=== PATIENT | male | born 1965 | race Caucasian/White ===

== ENCOUNTER 2022-10-17 06:35 | Observation (INO) ==
--- NOTE | 2022-09-17 10:12 | Anesthesiology Consultation ---
Date of Service September 17, 2022 Assessment & Plan (1) Encounter for pre-operative examination: Plan - will attempt to obtain cardiology records from Dr. Aguillon, [facility]. - Outpatient joint pathway eligibility pending review of available cardiology records. Chart Review Chart Review: Pending: Refer to Additional Notes / Consult section and Patient seen in Pre Admission Testing Teaching & Discussion Pre-Anesthesia Teaching/Discussion Notes: Instructed NPO after midnight before surgery, except medications with 15 cc of water. Medication instructions provided according to the PAT guidelines. History Surgery Operation Date: 10/17/22 08:10 Proposed Procedures p OP: Right Total Shoulder Arthroplasty vs - Tobi Gambino DO s Right Reverse Total Shoulder Arthroplasty - Tobi Gambino DO Height/Weight Height: 6 ft 1 in Weight: 118.2 kg Allergies Allergy/AdvReac Type Severity Reaction Status Date / Time No Known Allergies Allergy Verified 09/17/22 08:58 Medications Home Medications Medication Instructions Recorded Confirmed Last Taken aspirin 81 mg tablet,delayed 81 mg PO DAILY 09/17/22 09/17/22 Unknown release (Adult Aspirin Regimen) ibuprofen PRN Pain 09/17/22 Unknown Additional Notes: Pt aware he can continue aspirin unless directed otherwise by surgeon, states he was told by surgeon's office to stop NSAIDs 7 days before surgery. Past Medical History Medical History (Updated 09/17/22 @ 10:36 by Kristine Perez PA-C) CAD (coronary artery disease) s/p stent 02/2022, [facility] History of anxiety History of blood transfusion 15 y/o Patient denies h/o stroke, seizures, heart attack, heart failure, DM, HTN, or blood clots. Exercise / Class Metabolic Activity II 4-5 Yardwork/Stairs/Walk up hill (denies CP or SOB with 1 FOS) Past Family History Family History Other No family history of adverse response to anesthesia Past Surgical History Surgical History (Updated 09/17/22 @ 10:39 by Kristine Perez PA-C) Cyst REMOVED FROM R index FINGER H/O wrist surgery RT WITH PINNING/HARDWARE INTACT History of appendectomy History of heart artery stent 02/2022>1 STENT PLACED @ [facility] DR. TREGESER History of surgery on arm LEFT ARM/HARDWARE PLACED A CHILD (? HARDWARE REMOVED) History of tooth extraction Nausea and vomiting after administration of anesthetic agent Past Anesthesia History No Hx of Anesthesia Complications and No Family Hx of Anesthesia Complications History of PONV No Hx of Motion Sickness and History of PONV (in childhood, denies needing scop patch or subsequent issues) Social History Smoking Status: Current some day smoker tobacco type: cigarettes Smoking cigarettes per day: 6 CIG DAILY>ADVISED Do You Dip or Chew Tobacco: No Hx Alcohol Use: Yes alcohol intake frequency: holidays/special occasions only substance use type: does not use Review of Systems Snoring, denies witnessed apneas. Patient denies chest pain, shortness of breath, dyspnea on exertion, reflux, fever, chills, cough, wheezing, or palpitations. Physical Exam Vital Signs Vitals BP 128/84 P 64 TEMP 98.3 SP02 96% on RA RESP 18 Physical Full cervical extension range of motion without pain TMD 3.5 finger breadths Mallampati Score 2 Dentition: intact, multiple caps/crowns; denies chipped or loose teeth, implants or bridges Lungs: normal respiratory effort. Clear throughout to auscultation, no adventitious breath sounds Cardiac: regular rate and rhythm, no murmurs noted Carotid arteries: negative bruit bilat Lab Results Anesthesia Preop Results Results Anesthesia Widget: WBC 5.99 K/ul (4.8-10.8) 09/17/22 Hgb 16.1 g/dl (14.0-18.0) 09/17/22 Hct 47.1 % (40.1-51.0) 09/17/22 Plt 189 K/uL (130-400) 09/17/22 Na 140 mmol/L (136-145) 09/17/22 K 4.2 mmol/L (3.5-5.1) 09/17/22 Cl 105 mmol/L (98-107) 09/17/22 CO2 31 mmol/L (21-32) 09/17/22 BUN 13 mg/dl (6-23) 09/17/22 Creat 0.76 mg/dl (0.6-1.4) 09/17/22 Glucose Level 87 mg/dl (70-99(Fasting)) 09/17/22 PT 10.1 Seconds (9.0-12.0) 09/17/22 PTT 26.2 Seconds (21.0-31.0) 09/17/22 INR 0.9 (0.9-1.1) 09/17/22 Blood Type A Positive 09/17/22 Antibody Screen NEGATIVE 09/17/22 Testing Electrocardiogram Date: 09/17/22 NSR, rate 61 bpm Chest X-Ray Date: 09/17/22 No acute process. Stress Test Date: 07/30/21 Exercise MPHR 90% METS 10 Low probability for exercise-induced ischemia Cardiac Catheterization Date: 02/20/21 Left main: 10-20% mild distal tapering LAD: 30% narrowing proximally Cx: 20-30% narrowing proximally. 95-99% narrowing with a little bit hazy with slow flow into the bifurcating distal marginal branch and somewhat contracted, post PCI 0% residual stenosis RCA: 20-30% luminal irregularities Culprit vessel was the left circumflex, successful VICTORIANO of mid AV Cx into the posterior marginal branch with 0% residual stenosis COVID-19 Risk Screen Screening Information COVID-19 Screen Date: 09/17/22 Exposure 21 Days Family/Household +COVID Last 21 Days: No Exposure 10 Days Any COVID Exposure Last 10 Days: No Symptoms Last 10 Days Experienced COVID Sx Last 10 Days: No + COVID 0-90 Days COVID + in Last 0-90 Days: No
[~2022-10-17 06:35] MED LIST: ACETAMINOPHEN 500 MG TAB PO SCH; FAMOTIDINE 20 MG TAB PO SCH; GABAPENTIN 300 MG CAP PO SCH; LR 15ML/HR IV SCH; LR 60ML/HR IV SCH; ORTHO JOINT MIX INFIL SCH; TRANEXAMIC ACID 1,000 MG **IV Intra-op IV SCH; TRANEXAMIC ACID 1,000 MG **IV Pre-op IV SCH; ceFAZolin 2000MG 2,000 MG/15 ML SYR IV SCH; dexAMETHasone 4 MG TAB PO SCH
[2022-10-17] MEDS ORDERED: BUPIVACAINE 0.5 % 5 MG/1 ML PF 10ML VIAL ONE (06:38)
[2022-10-17] MEDS ORDERED: DEXAMETHASONE SOD INJ 4 MG/ML VIAL ONE (07:28)
[2022-10-17] MEDS ORDERED: ONDANSETRON INJ 2 MG/ML 2 ML VIAL ONE (07:28)
[2022-10-17] MEDS ORDERED: fentaNYL citrate 100 MCG/2 ML VIAL ONE (07:28)
[2022-10-17] MEDS ORDERED: PROPOFOL IV EMULSION 10 MG/ML 20 ML VIAL IV ONE (07:28)
[2022-10-17] MEDS ORDERED: LIDOCAINE 2% MPF LOCAL 5 ML VIAL INFIL ONE (07:28)
[2022-10-17] MEDS ORDERED: MIDAZOLAM HCL 1 MG/ML 2ML VIAL ONE (07:28)
[2022-10-17] MEDS ORDERED: ROCURONIUM BROMIDE 10 MG/ML 5 ML VIAL IV ONE (07:28)
--- NOTE | 2022-10-17 08:02 | History & Physical Bridge Note ---
Date of Service October 17, 2022 History & Physical Bridge Note I have examined the patient, reviewed the History & Physical and in the interval since the performance of the History & Physical I have noted the following changes of clinical significance: no changes noted
[2022-10-17] MEDS ORDERED: ORTHO JOINT ANESTHETIC ONE (08:34)
[2022-10-17] MEDS ORDERED: ONDANSETRON INJ 2 MG/ML 2 ML VIAL IV PRN ×2 (08:47→13:12)
[2022-10-17] MEDS ORDERED: ePHEDrine sulfate 50 MG/ML AMP IV PRN (08:47)
[2022-10-17] MEDS ORDERED: fentaNYL citrate 100 MCG/2 ML VIAL IV PRN (08:47)
[2022-10-17] MEDS ORDERED: HYDROmorphone INJ 2 MG/ML SYR/VIAL IV PRN (08:47)
[2022-10-17] MEDS ORDERED: PROMETHAZINE HCL 12.5 MG in SODIUM CHLORIDE 0.9% 50 ML IV PRN (08:47)
[2022-10-17] MEDS ORDERED: ATROPINE SULFATE 0.1 MG/ML 10ML SYR IV PRN (08:47)
--- NOTE | 2022-10-17 10:57 | Operative Report ---
PG Post Operative Report Pre & Post Diagnosis Operation Date: 10/17/22 09:20 Pre-Op Diagnosis: Right Shoulder Degenerative Joint With tendinopathy long head of biceps tendon Post-Op Diagnosis: Right Shoulder Degenerative Joint With tendinopathy long head of the biceps tendon I identified the patient and participated in the time-out.: Yes Procedure Operation Date: 10/17/22 09:20 Actual Procedures p Right Total Shoulder Arthroplasty With open biceps tenodesis as a distinct and separate procedure (modifier 59) Surgeon Tobi Gambino DO [employer] Tobi Acosta PA-C Estimated Blood Loss 200 Findings Consistent with Post-Op Diagnosis Specimens Right humeral head Description of Procedure A CPT code modifier 59: The long head of the biceps tendon was enlarged and inflamed consistent with tendinopathy. A tenodesis was opted. This was a separate and distinct portion of the procedure. For these reasons, a CPT code modifier 59 will be added to this case. Implants used: I used a [employer] Comprehensive total shoulder arthroplasty system with a size 11 press fit micro humeral stem, a size 46x21 eccentric humeral head, and a 5 augmented glenoid with a trabecular metal peg. The glenoid was cemented in place with Palacos G cement. Kirk arrived at [facility] for the above procedure. He was seen in the preoperative holding area and the operative extremity was identified and signed. He was given a preoperative antibiotic, TXA, and an interscalene nerve block. He was taken back to the operating room, laid on table in supine position, and put under general anesthesia. He was then put into the beachchair position. The shoulder was then prepped and draped in sterile fashion. A timeout was done and the patient and the operative extremity was properly identified. A deltopectoral approach was used. Dissection was taken down through the fascia and the deltoid was retracted laterally and the conjoined tendon was retracted medially. The anterior shoulder was exposed. The biceps groove was opened up and the biceps tendon was examined extensively. The biceps tendon demonstrated enlargement and inflammatory changes consistent with longstanding inflammation in the context of osteoarthritis. The long head of the biceps tendon was then tenodesed to the upper border of the pectoralis major. This was a separate and distinct portion of the procedure. The subscapularis was then released off the lesser tuberosity with a centimeter of cuff tissue remaining. The inferior capsule was released and the humeral head was dislocated. The rotator cuff was inspected and intact. A canal finding reamer was sent down the center of the humeral canal. Sequential reaming up to a size 11 reamer was done. Offset reamer a proximal humeral resection guide was placed. The proximal humerus was resected at 135 of inclination and 30 of retroversion. Inferior osteophytes were then removed and the glenoid was exposed. Time was spent doing an appropriate labral release. The glenoid measured to be a size 5. A [employer]im[employer] Signature One guide was then attached onto the anterior rim of the glenoid. A 3.2 mm Steinmann pin was then placed in the total shoulder arthroplasty hole. The glenoid was then reamed with a propeller reamer. The central post cutter was then used to prepare for the central boss. The cannulated peripheral peg drill guide was then placed and 3 peg holes were drilled. The final size 5 glenoid was then cemented in place with Palacos G cement. Surrounding soft tissues were then injected with 100 cc of an orthopedic pain control cocktail. Once cement had dried the proximal humerus was once again exposed. Sequential broaching of the humerus up to a size 11 broach was done. Off that broach a size 46x21 eccentric humeral head was trialed. The shoulder was then reduced, brought through a full range of motion, and felt to be stable. The shoulder was then dislocated and the broach was removed. The final size 11 micro humeral stem implant was then impacted into place. A size 46x21 eccentric humeral head was then impacted onto the humeral stem. The shoulder was then reduced and once again brought through a full range of motion and felt to be stable. The subscapularis was then tenodesed back to the lesser tuberosity with transosseous FiberWire sutures and side to side sutures with the arm in 45 of external rotation. 2 sutures were placed in the lateral rotator interval. A dilute betadyne lavage was then done for 3 minutes. The joint was then irrigated with normal saline solution. Hemostasis was obtained. The interval was closed with 2-0 Vicryl suture. The skin was closed with 2-0 Vicryl and darrel. A Silverlon dressing was placed and the arm was rested in a regular arm sling. He was then extubated and transferred to a hospital bed. He was taken to the postanesthesia care unit in stable condition. He tolerated the procedure well. Tobi Acosta PA-C, was present for the entire procedure. He was critical for patient positioning, prepping, draping, retraction exposure, wound closure and application of sterile dressing. I attest to the content of the Intraoperative Record and any orders documented therein. Any exceptions are noted below.
[2022-10-17] MEDS ORDERED: MAGNESIUM HYDROXIDE SUSP 30 ML UDC PO PRN (13:12)
[2022-10-17] MEDS ORDERED: METOCLOPRAMIDE HCL INJ 5 MG/ML 2 ML VIAL IV PRN (13:12)
[2022-10-17] MEDS ORDERED: NALOXONE HCL 0.4 MG/1 ML VIAL/CARP IV PRN (13:12)
[2022-10-17] MEDS ORDERED: HYDROmorphone INJ 0.5 MG/0.5 ML SYR IV PRN (13:12)
[2022-10-17] MEDS ORDERED: bisacodyL 10 MG SUPP PR PRN (13:12)
[2022-10-17] MEDS ORDERED: oxyCODONE HCL IR 5 MG TAB (IMMEDIATE RELEASE) PO PRN (13:12)
--- NOTE | 2022-10-17 14:18 | XRay Report ---
XR shoulder RT min 2V routine HISTORY: 57 years-old Male Post shoulder surgery right shoulder arthroplasty COMPARISON: Shoulder radiographs 09/17/2022 TECHNIQUE: 3 views the right shoulder FINDINGS: Total joint arthroplasty with overlying skin darrel. Severe AC joint osteoarthritis again noted. No acute fracture, dislocation, alignment or unexpected opaque foreign body identified. IMPRESSION: Total joint arthroplasty with expected postoperative changes. ACT 112: Negative or not required by law. The above report was generated using voice recognition software. It may contain grammatical, syntax o r spelling errors. Electronically signed by: Simone Blackwell M.D. 10/17/2022 2:16 PM
[2022-10-17] MEDS: SODIUM CHLORIDE 0.9% 1000ML 1,000 ML IV SCH (14:29)
[2022-10-17] MEDS: ACETAMINOPHEN 500 MG TAB PO SCH ×2 (16:08→23:13)
[2022-10-17] MEDS: KETOROLAC 30 MG/ML VIAL IV SCH ×2 (16:08→20:20)
[2022-10-17] MEDS: ceFAZolin 2000MG 2,000 MG/15 ML SYR IV SCH (17:28)
[2022-10-17] MEDS: DOCUSATE SODIUM 100 MG CAP PO SCH (20:21)
[2022-10-17] MEDS ORDERED: SENNA 8.6 MG TAB PO SCH (21:00)
[2022-10-18] MEDS: ceFAZolin 2000MG 2,000 MG/15 ML SYR IV SCH (01:12)
[2022-10-18] MEDS: KETOROLAC 30 MG/ML VIAL IV SCH ×2 (01:13→08:51)
[2022-10-18] MEDS: ACETAMINOPHEN 500 MG TAB PO SCH (05:38)
[2022-10-18] MEDS: SODIUM CHLORIDE 0.9% 1000ML 1,000 ML IV SCH (06:59)
[2022-10-18] MEDS ORDERED: dexAMETHasone 4 MG TAB PO SCH (08:00)
[2022-10-18] MEDS: DOCUSATE SODIUM 100 MG CAP PO SCH (08:51)
[2022-10-18] MEDS ORDERED: MULTIVITAMIN TAB PO SCH (09:00)
[2022-10-18] MEDS ORDERED: ASPIRIN 81 MG ECTAB PO SCH (09:00)
--- NOTE | 2022-10-18 09:00 | Orthopedic Progress Note ---
Date of Service October 18, 2022 Assessment & Plan (1) Status post replacement of right shoulder joint: Overall he is doing very well. He is not having much pain in the right shoulder. He will be seen by physical therapy today for ambulation and range of motion exercises. He can be discharged home later today. He will follow-up orthopedics in 2 weeks. Mayco Carney was seen and examined at bedside this morning. Overall is doing very well. He is not having much pain in the right shoulder. He was able to get some sleep last night. Has no complaints.. Review of Systems All systems reviewed & are unremarkable except as noted in HPI & below. Physical Exam On physical examination of the right shoulder, the dressing is clean and dry. He is wearing his sling as instructed. He has neurovascular intact.. Results & Data Results & Data Laboratory Results . Diagnostic Findings Postoperative x-rays of the right shoulder show the prosthesis to be in anatomic alignment without any evidence of fracture, desiccation, or loosening. PG Care Time/CCT Total # of Minutes Spent Total Time Spent with Patient: Total time spent is greater than 50% in coordination of care (as documented) at patient's floor/unit and/or counseling patient: Coding Level of Care Code 27170 Post Operative Follow-Up Diagnoses Status post replacement of right shoulder joint Z96.611
--- NOTE | 2022-10-18 09:01 | Discharge Summary ---
Date of Service October 18, 2022 Principal Diagnosis Same as "Discharge Diagnosis" noted below under Discharge Instructions. Discharge Exam On physical examination of the right shoulder, the dressing is clean and dry. He is wearing his sling as instructed. He has neurovascular intact.. Discharge Data Procedures Performed Operation Date: 10/17/22 09:20 Actual Procedures p Right total shoulder arthroplasty with open biceps tenodesis (Right) - Tobi Gambino DO Ordered Studies 10/17/22 05:00 US - OR guided needle placemen Routine Hospital Course (1) Status post replacement of right shoulder joint: On October 17, 2022 Rommel arrived at [facility] and underwent a right shoulder replacement without complication. He had a general anesthetic and a right interscalene nerve block. Postoperatively he was placed in a sling and transferred to the general orthopedic floors. His hospital course was uneventful. On postop day #1, his vital signs were stable and his pain was well controlled. He was able to participate well with physical therapy doing ambulation and range of motion exercises. He was then discharged home. He will follow-up with orthopedics in 2 weeks. PG Care Time/CCT Total # of Minutes Spent Total Time Spent with Patient: Total time spent is greater than 50% in coordination of care (as documented) at patient's floor/unit and/or counseling patient: Discharge Plan Discharge Items Patient Disposition: Home - Home Health Services Reason For Visit: Right Shoulder Degenerative Joint Discharge Diagnosis: Right shoulder replacement Activity: Per Instructions section Non-emergency contact: Surgeon Call non-emergency contact if: your wound has increased redness and your wound has increased drainage Follow-up/Referrals: Lorna Barriga CRNP [Primary Care Provider] - Diet: Regular Addtl Attending Provider Instructions: Activity and Therapy Recommendations: * If you are using [facility] then therapy will be provided at your home until they feel you have accomplished all of your goals. * If you are using [facility] then Physical Therapy will be provided until they feel you are ready to start Outpatient Physical Therapy. * If you are not using home therapy then Outpatient Physical Therapy should start about 3-5 days from your day of surgery. Therapy will last about 8-12 weeks * Wear your sling for 3 weeks, unless otherwise instructed. You may remove your sling to shower and to dress, but otherwise, you should be in your sling at all times, including while sleeping * The shoulder replacement is very stable and you can use your hand while in the sling * You were shown a series of exercises in the hospital. Do these exercises daily including the exercises you were shown in physical therapy. Medications: * Narcotic You will likely be sent home from the hospital with a prescription for the narcotic pain medication that worked best throughout your stay. * Other medications may be prescribed for specific circumstances. If you have any questions, please call the office at . * Resume previous home medications unless otherwise instructed Dressing Care: Leave the Silverlon dressing in place for 7 days. After 7 days you may remove the dressing. If the incision is not draining then you may leave the darrel open to air. If there is a little bit of drainage or if the darrel are getting stuck on your clothing then cover the incision with a dry dressing. The darrel will be removed at your 2 week follow-up appointment. Showering: You may shower with the Silverlon dressing in place. Do not let the shower spray hit the dressing directly. Pat the Silverlon dressing dry. If the dressing becomes wet underneath, then simply remove the dressing. Keep the incision dry until you are 7 days out from the day of surgery. After 7 days you may remove the Silverlon dressing and shower with the darrel exposed. Let soapy water run over the darrel and pat them dry. Do not scrub or soak the incision. Things To Watch For: * Drainage from the incision site that occurs more than one week after your surgery. * Increased redness at the incision site. * Fever above 102 degrees Fahrenheit. * Unusual chest pain or shortness of breath. * Call [facility] at with any of the above problems Follow-Up Visit: Follow-up with Dr. Gambino's PA (Tobi Acosta) 2-3 weeks after your day of surgery. He will remove your darrel and answer any questions. If you have any additional questions or concerns, Dr aGmbino is usually in the office at the same time and will be available An appointment was probably scheduled when you signed-up for surgery in the office. If you have any questions call More detailed instructions as well as Frequently Asked Questions were provided in a folder by our office when you signed-up for surgery. Please review these instructions when you get home. If you have any further questions or concerns, please feel free to call the office at [phone] Pending Studies at Discharge: No Stand-Alone Forms: [facility] Medications and DC Order Prescriptions: New oxycodone-acetaminophen 5-325 mg tablet 1 tab PO Q6H PRN (Reason: pain) Qty: 30 0RF Continued aspirin [Adult Aspirin Regimen] 81 mg tablet,delayed release (DR/EC) 81 mg PO DAILY ibuprofen 400 mg PRN (Reason: Pain) Discharge Orders: Discharge Order (Routine); Ordered 10/18/22 Ordered By: Tobi Gambino Admission Data Admit Date/Time: 10/17/22 11:15 Attending Provider: Tobi Gambino Admit Provider: Tobi Gambino Primary Care Provider: Lorna Barriga
== END 2022-10-18 10:34 | disposition home health service (06) ==
LOC: ASU 06:35 → PACUINP 06:35 → 3N 14:14
DX: Z79.82 Long term (current) use of aspirin; F17.210 Nicotine dependence, cigarettes, uncomplicated; M19.011 Primary osteoarthritis, right shoulder